=== PATIENT | female | born 1965 | race Caucasian/White ===

== ENCOUNTER → 2019-11-08 | Outpatient (CLI) | payer BC ==
--- NOTE | 2019-11-09 11:17 | MM ---
Reason for exam: screening (asymptomatic). Last mammogram was performed 4 years and 9 months ago. Physical Findings: A clinical breast exam by your physician is recommended on an annual basis and results should be correlated with mammographic findings. MG Screening Mammo w CAD Bilateral CC and MLO view(s) were taken. Prior study comparison: January 23, 2015, bilateral MG screening mammo w CAD. October 18, 2013, [facility] DIGITAL LEFT BREAST MAMMOGRAM w/CAD. There are scattered fibroglandular densities. No suspicious abnormality. No significant changes when compared with prior studies. ASSESSMENT: Negative, BI-RAD 1 RECOMMENDATION: Routine screening mammogram of both breasts in 1 year.
== END | disposition home or self-care (01) ==
LOC: RADMAMWWP 08:31
PROVIDERS: ATTEND Internal Medicine
DX: Z12.31 Encounter for screening mammogram for malignant neoplasm of breast (principal)
CPT/HCPCS: 77067

== ENCOUNTER → 2020-12-02 | Outpatient (CLI) | payer BC ==
--- NOTE | 2020-12-03 14:59 | MM ---
Reason for exam: screening (asymptomatic). Last mammogram was performed 1 year and 1 month ago. Physical Findings: A clinical breast exam by your physician is recommended on an annual basis and results should be correlated with mammographic findings. MG Screening Mammo w CAD Bilateral CC and MLO view(s) were taken. Prior study comparison: November 08, 2019, bilateral MG screening mammo w CAD. January 23, 2015, bilateral MG screening mammo w CAD. There are scattered fibroglandular densities. No significant changes when compared with prior studies. ASSESSMENT: Negative, BI-RAD 1 RECOMMENDATION: Routine screening mammogram of both breasts in 1 year.
== END | disposition home or self-care (01) ==
LOC: RADMAMWWP 14:58
PROVIDERS: ATTEND Internal Medicine
DX: Z12.31 Encounter for screening mammogram for malignant neoplasm of breast (principal)
CPT/HCPCS: 77067

== ENCOUNTER 2023-03-09 20:16 | Inpatient (IN) | payer BC ==
[2023-03-09] MEDS ORDERED: SODIUM CHLORIDE 0.9% 500 ML 500 ML IV STA (20:45)
--- NOTE | 2023-03-09 20:49 | ED ---
General Adult HPI - General Chief complaint: Neuro Symptoms/Deficit Stated complaint: Headache/Lt arm numbness Time Seen by Provider: 03/09/23 20:37 Source: patient, RN notes reviewed, old records reviewed Mode of arrival: ambulatory Limitations: no limitations - History of Present Illness Initial comments: 57-year-old female presenting for evaluation of headache, confusion, and left arm numbness and tingling. Symptoms began at least 2 days prior. Patient states that she has woke with headache which is both occipital and frontal. She states this headache was more severe than typical headaches. She was noted by family to have some confusion and delayed responses. No slurred speech. No facial asymmetry. She denies weakness in the extremities but states she feels tingling in her left arm. No central chest pain. No fever. - Related Data Allergies Allergy/AdvReac Type Severity Reaction Status Date / Time Sulfa (Sulfonamide Allergy Rash/Hives Verified 03/09/23 20:30 Antibiotics) Review of Systems ROS Statement: Those systems with pertinent positive or pertinent negative responses have been documented in the HPI. ROS Other: All systems not noted in ROS Statement are negative. Past Medical History Past Medical History: Hypertension History of Any Multi-Drug Resistant Organisms: None Reported Past Surgical History: Section Past Psychological History: No Psychological Hx Reported Smoking Status: Never smoker Past Alcohol Use History: Rare Past Drug Use History: None Reported General Exam Limitations: no limitations General appearance: alert, in no apparent distress Head exam: Present: atraumatic, normocephalic Eye exam: Present: normal appearance, PERRL Neck exam: Present: normal inspection Respiratory exam: Present: normal lung sounds bilaterally. Absent: respiratory distress, wheezes Cardiovascular Exam: Present: regular rate, normal rhythm GI/Abdominal exam: Present: soft. Absent: distended, tenderness, guarding, rebound Extremities exam: Present: normal inspection, normal capillary refill. Absent: pedal edema Neurological exam: Present: alert, oriented X3, CN II-XII intact, motor sensory deficit (paresthesia of the left arm, drift without ataxia, nih 1) Psychiatric exam: Present: normal affect, normal mood Skin exam: Present: warm, dry, intact Course Vital Signs 03/09/23 03/09/23 20:26 21:29 Temperature 98 F Pulse Rate 99 69 Respiratory 18 18 Rate Blood Pressure 132/87 136/89 O2 Sat by Pulse 98 98 Oximetry Medical Decision Making - Medical Decision Making Was pt. sent in by a medical professional or institution ([facility], [facility], urgent care, hospital, or shelter...) When possible be specific @ -[No] Did you speak to anyone other than the patient for history (EMS, parent, family, police, friend...)? What history was obtained from this source @ -[No] Did you review nursing and triage notes (agree or disagree)? Why? @ -[I reviewed and agree with nursing and triage notes] Were old charts reviewed (outside hosp., previous admission, EMS record, old EKG, old radiological studies, urgent care reports/EKG's, shelter records)? Report findings @ -[No old charts were reviewed] Differential Diagnosis (chest pain, altered mental status, abdominal pain women, abdominal pain men, vaginal bleeding, weakness, fever, dyspnea, syncope, headache, dizziness, GI bleed, back pain, seizure, CVA, palpatations, mental health, musculoskeletal)? @ -[Differential CVA Ischemic stroke, hemorrhagic stroke, brain tumor, atypical migraine, Wernicke's encephalopathy, seizure, multiple sclerosis, meningitis, encephalitis, hypoglycemia, Guillain-Rodriguez, electrolytes disturbance, myasthenia gravis.... This is not meant to be an all-inclusive list] EKG interpreted by me (3pts min.). @ -[EKG: Sinus rhythm, right axis deviation, rate of 87, OR interval 134, QRS duration 117, QTC 420, no ST segment elevation, T-wave inversion in V2 and V3, right bundle branch block.] X-rays interpreted by me (1pt min.). @ -[NEGATIVE FOR ACUTE CARDIOPULMONARY CT interpreted by me (1pt min.). @ -ct BRAIN WITHOUT CONTRAST, NEGATIVE FOR INTRACRANIAL HEMORRHAGE OR MASS EFFECT U/S interpreted by me (1pt. min.). @ -[None done] What testing was considered but not performed or refused? (CT, X-rays, U/S, labs )? Why? @ -[None] What meds were considered but not given or refused? Why? @ -[None] Did you discuss the management of the patient with other professionals (professionals i.e. [facility] Harvey, [facility]AMPOOER, lab, RT, psych nurse, social services specialist, wound care physician, teacher, wildlife officer, case management assistant)? Give summary @ -[employer]] Was smoking cessation discussed for >3mins.? @ -[No] Was critical care preformed (if so, how long)? @ -[No] Were there social determinants of health that impacted care today? How? (Homelessness, low income, unemployed, alcoholism, drug addiction, transportation, low edu. Level, literacy, decrease access to med. care, care home, rehab)? @ -[No] Was there de-escalation of care discussed even if they declined (Discuss DNR or withdrawal of care, Hospice)? DNR status @ -[No] What co-morbidities impacted this encounter? (DM, HTN, Smoking, COPD, CAD, Cancer, CVA, ARF, Chemo, Hep., AIDS, mental health diagnosis, sleep apnea, m orbid obesity)? @ -[None] Was patient admitted / discharged? Hospital course, mention meds given and route, prescriptions, significant lab abnormalities, going to OR and other pertinent info. @ -[57-YEAR-OLD FEMALE WITH 2 DAYS OF HEADACHE, CONFUSION, AND LEFT ARM PARESTHESIA. pATIENT HAS A SUBTLE DRIFT IN THE LEFT UPPER EXTREMITY. sHE HAS PARESTHESIA WITHOUT NUMBNESS ON EXAM. nih OF 1. sHE HAS NO PRIOR HISTORY OF cva. head CT negative for intracranial hemorrhage or mass effect, CT angiography negative for acute occlusion. Patient given aspirin and IV fluids in the emergency department. She will be admitted for further evaluation of CVA. She'll be admitted to internal medicine with neurology on consult.] Undiagnosed new problem with uncertain prognosis? @ -[No] Drug Therapy requiring intensive monitoring for toxicity (Heparin, Nitro, Insulin, Cardizem)? @ -[No] Were any procedures done? @ -[No] Diagnosis/symptom? @ -[CVA ] Acute, or Chronic, or Acute on Chronic? @ -[acute] Uncomplicated (without systemic symptoms) or Complicated (systemic symptoms)? @ -[complicated] Side effects of treatment? @ -[No] Exacerbation, Progression, or Severe Exacerbation? @ -[No] Poses a threat to life or bodily function? How? (Chest pain, USA, OR, pneumonia, PE, COPD, DKA, ARF, appy, cholecystitis, CVA, Diverticulitis, Homicidal, Suicidal, threat to staff... and all critical care pts) @ -[Yes, CVA] - Lab Data Result diagrams: 03/09/23 20:52 03/09/23 20:52 Lab Results 03/09/23 03/09/23 03/09/23 Range/Units 20:52 20:52 20:52 WBC 7.4 (3.8-10.6) k/uL RBC 4.79 (3.80-5.40) m/uL Hgb 14.4 (11.4-16.0) gm/dL Hct 42.5 (34.0-46.0) % MCV 88.8 (80.0-100.0) fL MCH 30.0 (25.0-35.0) pg MCHC 33.8 (31.0-37.0) g/dL RDW 12.7 (11.5-15.5) % Plt Count 353 (150-450) k/uL MPV 7.6 Neutrophils % 61 % Lymphocytes % 28 % Monocytes % 7 % Eosinophils % 1 % Basophils % 0 % Neutrophils # 4.5 (1.3-7.7) k/uL Lymphocytes # 2.1 (1.0-4.8) k/uL Monocytes # 0.5 (0-1.0) k/uL Eosinophils # 0.1 (0-0.7) k/uL Basophils # 0.0 (0-0.2) k/uL PT 9.9 (9.0-12.0) sec INR 0.9 (<1.2) APTT 25.6 (22.0-30.0) sec Sodium 141 (137-145) mmol/L Potassium 3.4 L (3.5-5.1) mmol/L Chloride 105 (98-107) mmol/L Carbon Dioxide 26 (22-30) mmol/L Anion Gap 10 mmol/L BUN 12 (7-17) mg/dL Creatinine 0.85 (0.52-1.04) mg/dL Est GFR (CKD-EPI)AfAm 88 (>60 ml/min/1.73 sqM) Est GFR (CKD-EPI)NonAf 76 (>60 ml/min/1.73 sqM) Glucose 114 H (74-99) mg/dL POC Glucose (mg/dL) (70-110) mg/dL POC Glu Die Developer ID Calcium 9.5 (8.4-10.2) mg/dL Total Bilirubin 0.4 (0.2-1.3) mg/dL AST 30 (14-36) U/L ALT 27 (4-34) U/L Alkaline Phosphatase 75 (38-126) U/L Creatine Kinase 132 (30-135) U/L Troponin I (0.000-0.034) ng/mL Total Protein 7.3 (6.3-8.2) g/dL Albumin 4.1 (3.5-5.0) g/dL 03/09/23 03/09/23 Range/Units 20:52 20:54 WBC (3.8-10.6) k/uL RBC (3.80-5.40) m/uL Hgb (11.4-16.0) gm/dL Hct (34.0-46.0) % MCV (80.0-100.0) fL MCH (25.0-35.0) pg MCHC (31.0-37.0) g/dL RDW (11.5-15.5) % Plt Count (150-450) k/uL MPV Neutrophils % % Lymphocytes % % Monocytes % % Eosinophils % % Basophils % % Neutrophils # (1.3-7.7) k/uL Lymphocytes # (1.0-4.8) k/uL Monocytes # (0-1.0) k/uL Eosinophils # (0-0.7) k/uL Basophils # (0-0.2) k/uL PT (9.0-12.0) sec INR (<1.2) APTT (22.0-30.0) sec Sodium (137-145) mmol/L Potassium (3.5-5.1) mmol/L Chloride (98-107) mmol/L Carbon Dioxide (22-30) mmol/L Anion Gap mmol/L BUN (7-17) mg/dL Creatinine (0.52-1.04) mg/dL Est GFR (CKD-EPI)AfAm (>60 ml/min/1.73 sqM) Est GFR (CKD-EPI)NonAf (>60 ml/min/1.73 sqM) Glucose (74-99) mg/dL POC Glucose (mg/dL) 112 H (70-110) mg/dL POC Glu Die Developer ID February, Calcium (8.4-10.2) mg/dL Total Bilirubin (0.2-1.3) mg/dL AST (14-36) U/L ALT (4-34) U/L Alkaline Phosphatase (38-126) U/L Creatine Kinase (30-135) U/L Troponin I <0.012 (0.000-0.034) ng/mL Total Protein (6.3-8.2) g/dL Albumin (3.5-5.0) g/dL Disposition Clinical Impression: Cerebrovascular accident (CVA) Disposition: ADMITTED IP TO THIS HOSP Condition: Stable Is patient prescribed a controlled substance at d/c from ED?: No Referrals: Jacobo Metcalf MD [Primary Care Provider] - 1-2 days Time of Disposition: 22:26
[2023-03-09 20:55] LABS: Glucose,Whole Blood 112 mg/dL (70-110)
--- NOTE | 2023-03-09 21:13 | XR ---
EXAMINATION TYPE: XR chest 2V DATE OF EXAM: 03/09/2023 9:07 PM COMPARISON: Chest radiographs from 08/07/2014 TECHNIQUE: XR chest 2V Frontal and lateral views of the chest. CLINICAL INDICATION:Female, 57 years old with history of altered mental status; FINDINGS: Lungs/Pleura: There is no evidence of pleural effusion, focal consolidation, or pneumothorax. Pulmonary vascularity: Unremarkable. Heart/mediastinum: Cardiomediastinal silhouette is unremarkable. Musculoskeletal: No acute osseous pathology. IMPRESSION: No acute cardiopulmonary disease/process.
[2023-03-09 21:20] LABS: ALT 27 U/L (4-34); AST 30 U/L (14-36); African American GFR (CKD) 88 (>60 ml/min/1.73 sqM); Albumin 4.1 g/dL (3.5-5.0); Alkaline Phosphatase 75 U/L (38-126); Anion Gap 10 mmol/L; Blood Urea Nitrogen 12 mg/dL (7-17); Calcium 9.5 mg/dL (8.4-10.2); Carbon Dioxide 26 mmol/L (22-30); Chloride 105 mmol/L (98-107); Creatine Kinase 132 U/L (30-135); Glucose 114 mg/dL (74-99); Non-African American GFR(CKD) 76 (>60 ml/min/1.73 sqM); Potassium 3.4 mmol/L (3.5-5.1); Sodium 141 mmol/L (137-145); Total Bilirubin 0.4 mg/dL (0.2-1.3); Total Protein 7.3 g/dL (6.3-8.2)
[2023-03-09 21:21] LABS: Basophils % (A) 0 %; Eosinophils # (A) 0.1 k/uL (0-0.7); Eosinophils % (A) 1 %; HCT 42.5 % (34.0-46.0); HGB 14.4 gm/dL (11.4-16.0); INR 0.9 (<1.2); Lymphocytes # (A) 2.1 k/uL (1.0-4.8); Lymphocytes % (A) 28 %; MCHC 33.8 g/dL (31.0-37.0); MCV 88.8 fL (80.0-100.0); Mean Platelet Volume 7.6; Monocytes # (A) 0.5 k/uL (0-1.0); Monocytes % (A) 7 %; Neutrophils # (A) 4.5 k/uL (1.3-7.7); Neutrophils % (A) 61 %; Partial Thromboplastin Time 25.6 sec (22.0-30.0); Platelet Count 353 k/uL (150-450); Prothrombin Time 9.9 sec (9.0-12.0); RBC 4.79 m/uL (3.80-5.40); RDW 12.7 % (11.5-15.5); WBC 7.4 k/uL (3.8-10.6)
--- NOTE | 2023-03-09 21:56 | CT ---
EXAMINATION TYPE: CT brain wo con CT DLP: 1273.7 mGycm, Automated exposure control for dose reduction was used. DATE OF EXAM: 03/09/2023 9:18 PM COMPARISON: None. CLINICAL INDICATION:Female, 57 years old with history of Neuro deficit, acute, stroke suspected, Neur o deficit, acute, stroke suspected TECHNIQUE: Brain: Axial CT images of the brain were obtained with coronal and sagittal reformats created and rev iewed. Contrast used: None. Oral contrast used: None. FINDINGS: Brain: Extra-axial spaces: No abnormal extra-axial fluid collections. Ventricular system: Within normal limits Cerebral parenchyma: No acute intraparenchymal hemorrhage or mass effect. The andrews-white junction is well differentiated. Cerebellum: Unremarkable. Mass effect: No evidence of midline shift. Intracranial vasculature: unremarkable Soft tissues: Normal. Calvarium/osseous structures: No depressed skull fracture. Paranasal sinuses and mastoid air cells: Mild scattered paranasal sinus disease. Visualized orbits: Orbital contents are intact. IMPRESSION: No acute intracranial process.
[2023-03-09] MEDS ORDERED: ASPIRIN 325 MG TAB PO STA (21:58)
--- NOTE | 2023-03-09 22:03 | CT ---
EXAMINATION TYPE: CT angio head neck CT DLP: 583.8 mGycm, Automated exposure control for dose reduction was used. DATE OF EXAM: 03/09/2023 9:30 PM COMPARISON: CT same day. CLINICAL INDICATION:Female, 57 years old with history of Neuro deficit, acute, stroke suspected; PHH, Neuro deficit, acute, stroke suspected TECHNIQUE: Axially acquired helical CT angiogram of the head and neck was obtained with contrast. Axi al images are supplemented with 3D reconstructions which [facility] NASCET criteria used. Contrast used:65ml mL of Isovue 370 with IV Contrast, Oral contrast used: None. FINDINGS: CTA HEAD: No evidence of acute intracranial hemorrhage, mass effect, or midline shift. The ventricles, sulci, a nd cisterns are unremarkable. The visualized portions of the internal carotid arteries, middle cerebral arteries, anterior cerebral arteries, and posterior cerebral arteries are patent. The basilar and vertebral arteries are patent. CTA NECK: Right Carotid System: The common carotid artery and external carotid artery are patent. The carotid bifurcation demonstrate s no evidence of hemodynamically significant stenosis. The remaining portions of the internal carotid artery demonstrate normal size without significant narrowing. Left Carotid System: The common carotid artery and external carotid artery are patent. The carotid bifurcation demonstrate s no evidence of hemodynamically significant stenosis. The remaining portions of the internal carotid artery demonstrate normal size without significant narrowing. Vertebral arteries are patent without evidence hemodynamically significant stenosis. There is a three-vessel aortic arch. The origins of the great vessels are patent. No evidence of hemo dynamically significant stenosis. Upper thorax: IMPRESSION: 1. No evidence of dissection of the cervical internal carotid arteries or vertebral arteries or any e vidence of significant stenosis at the carotid bifurcations. 2. No evidence of intracranial high-grade stenosis or intracranial aneurysm.
[2023-03-09] MEDS: SODIUM CHLORIDE 0.9% 1,000 ML IV SCH (22:45)
[2023-03-10] MEDS ORDERED: CLOPIDOGREL 75 MG TAB PO STA (00:27)
--- NOTE | 2023-03-10 03:52 | P.HPIM ---
History of Present Illness H&P Date: 03/09/23 Chief Complaint: left UE parasthesia 57 y old female with no significant past medical history , except for remote history of hypertension not currently on meds she is coming in for symptoms that started over the weekend , when she first noticed some simple confusion and memory issues over very simple every day facts. then she was experiencing unusual headaches described as pressure like frontal and occipital , with no associated focal neuro deficits, denies any injuries , vision or hearing changes. then today she started noticing left UE numbness and tingling since 4 pm and decided to come in for evaluation no history of blood clots or CVA. no history of afib denies any injuries .to the head or neck. denies smoking, illicit drugs or alcohol Review of Systems Pertinent positives as noted in HPI. All other systems were reviewed and are negative Past Medical History Past Medical History: Hypertension History of Any Multi-Drug Resistant Organisms: None Reported Past Surgical History: Section Past Psychological History: No Psychological Hx Reported Smoking Status: Never smoker Past Alcohol Use History: Rare Past Drug Use History: None Reported Medications and Allergies Home Medications Medication Instructions Recorded Confirmed Type Levothyroxine Sodium [Synthroid] 125 mcg PO [id number] 03/09/23 03/09/23 History Loratadine 10 mg PO DAILY 03/09/23 03/09/23 History Semaglutide [Wegovy] 2.4 mg SQ MO 03/09/23 03/09/23 History Allergies Allergy/AdvReac Type Severity Reaction Status Date / Time Sulfa (Sulfonamide Allergy Rash/Hives Verified 03/09/23 22:38 Antibiotics) Physical Exam Vitals: Vital Signs Temp Pulse Resp BP Pulse Ox 03/09/23 22:46 78 18 103/86 97 03/09/23 21:29 69 18 136/89 98 03/09/23 20:26 98 F 99 18 132/87 98 Intake and Output 03/09/23 03/09/23 03/10/23 14:59 22:59 06:59 Other: Weight 81.193 kg Constitutional: No acute distress, conversant, pleasant Eyes: Anicteric sclerae, moist conjunctiva, Pupils equal round reactive to light ENMT: NC/AT Oropharynx clear, no erythema, or exudates Neck: Supple, no masses, or JVD No carotid bruits No thyromegaly Lungs: Clear to auscultation Clear to percussion Normal respiratory effort, no accessory muscle use Cardiovascular: Heart regular in rate and rhythm, No murmurs, gallops, or rubs No peripheral edema Abdominal: Soft Nontender, no guarding, rebound or rigidity Abdomen moving with respiration Normoactive bowel sounds No hepatomegaly, No splenomegaly No palpable mass No abdominal wall hernia noted Skin: Normal temperature, tone, texture, turgor Extremities: No digital cyanosis No clubbing Pedal pulses intact and symmetrical Radial pulses intact and symmetrical No calf tenderness Psychiatric: Alert and oriented to person, place and time Appropriate affect fair judgment Neuro Muscles Strength 5/5 in all 4 extremities Sensation to light touch grossly present throughout Cranial nerves II-XII grossly intact finger nose exam is intact Lymphatics: no palpable cervical or supraclavicular lymph nodes Results CBC & Chem 7: 03/09/23 20:52 03/09/23 20:52 Labs: Abnormal Lab Results - Last 24 Hours (Table) 03/09/23 03/09/23 Range/Units 20:52 20:54 Potassium 3.4 L (3.5-5.1) mmol/L Glucose 114 H (74-99) mg/dL POC Glucose (mg/dL) 112 H (70-110) mg/dL Assessment and Plan Assessment: 57 year old female coming in for numbness and tingling over the Left UE, and headache and some confusion over the past 2 days, I discussed the case with ED doc, and I accepted the admission for neuro workup , with anticipated length of stay < 2 midnights left upper extremity numbness and tingling , rule out CVA CT brain and CTA head and neck negative for acute pathology neuro checks tpa not given due to symptoms > 4 hours aspirin and statin plavix not started , as I doubt diagnosis of stroke, will await neuro input fall precautions PT /OT eval check echocardiogram CTA head and neck did not show significant internal carotid blockage CXR no acute pathology vital signs stable IVF hydration with normal saline blood work showed Hgb 14.4, WBC 7.4 unremarkable renal function bun 12 , cr 0.85 full code dvt PPX mechanical
[2023-03-10] MEDS ORDERED: LEVOTHYROXINE 125 MCG TAB PO SCH (06:30)
[2023-03-10] MEDS: ASPIRIN 81 MG PO SCH (08:25)
[2023-03-10] MEDS ORDERED: CLOPIDOGREL 75 MG TAB PO SCH (09:00)
[2023-03-10] MEDS ORDERED: ASPIRIN 325 MG TAB PO SCH (09:00)
--- NOTE | 2023-03-10 11:29 | MR ---
EXAMINATION TYPE: MR brain wo con DATE OF EXAM: 03/10/2023 COMPARISON: CT brain 03/09/2013 HISTORY: Neuro deficit, acute, stroke suspected TECHNIQUE: T1-weighted sagittal, T2, FLAIR, and diffusion axial, and T2 coronal coronal views of the brain are submitted. FINDINGS: There is no evidence of acute ischemia. The ventricles, basal cisterns, and sulci overlying the conv exities are consistent with the patient's age. There is no mass effect. Craniocervical junction maintained. Partially empty sella turcica incidentally noted.. Mild changes of chronic right mastoiditis and sinusitis. Orbits symmetric. No cerebellopontine angle mass. IMPRESSION: 1. No acute intracranial process. 2. Chronic right mastoiditis and sinusitis.
[2023-03-10 12:22] LABS: T4, Free (Free Thyroxine) 2.52 ng/dL (0.78-2.19)
[2023-03-10] MEDS: SODIUM CHLORIDE 0.9% 1,000 ML IV SCH (13:07)
--- NOTE | 2023-03-10 13:23 | P.PN ---
Subjective Progress Note Date: 03/10/23 Hospital course Patient is a 57-year-old female with past medical history of hypothyroidism and currently taking with weight loss who presents to the ED with confusion and memory issues and headache and left upper extremity numbness. Patient's CT head and neck did not show significant internal carotid blockage. CT head negative for acute process. MRI also negative for acute process. LDL 76. Patient started on aspirin and statin. Patient blood pressure is controlled. Patient's TSH was low and T4 is high. Her levothyroxine dose was decreased to 75 g. Subjective Patient states that the numbness in her left hand is better but see still has some. Physical exam General examination - Alert and Oriented 3 in NAD Heart - + S1S2 no murmurs Lungs - Clear to auscultation Abdomen soft NT ND +ve BS Extremities - No edema DIRECTOR [employer] - Moving all 4 extremities spontaneously, mild decreased sensation in the left upper extremity Psych - Calm and cooperative Assessment and Plan: Left upper extremity numbness Hypothyroidism with low TSH and high T4 Obesity Based on my assessment of this patient, this patient meets a moderate complexity level Patient's MRI negative. LDL greater than 70 so we'll resume high intensity started. Patient atorvastatin 80 mg at bedtime. Resume aspirin 81 mg daily. Patient's TSH is low and T4 is high. We'll decrease levothyroxine to 75 g daily Patient to resume wegovy after discharge. CODE STATUS: FULL CODE. DVT prophylaxis: Lovenox. Anticipated discharge place: Pending clinical course Anticipated discharge time: Pending clinical course I have reviewed the following party plan sales consultant notes: None I have reviewed the results of the following tests: TSH, T4, lipid panel, WBC, BMP I have ordered the following tests: None I have discussed the care of this patient with the following independent historian: None I have independently interpreted the following test below: TSH and T4 and lipid panel I have discussed the management of this patient with the following physician: None This patient has a moderate risk of morbidity due to the following reasons: Left upper extremity numbness concerning for TIA versus other etiology Objective - Vital Signs Vital signs: Vital Signs Temp 97.7 F 03/10/23 08:25 Pulse 76 03/10/23 11:30 Resp 17 03/10/23 11:30 BP 145/81 03/10/23 11:30 Pulse Ox 97 03/10/23 11:30 FiO2 Intake & Output 03/09/23 03/10/23 03/10/23 18:59 06:59 18:59 Intake Total 1000 118 Balance 1000 118 Weight 83 kg Intake: Intake, IV Titration 800 Amount Sodium Chloride 0.9% 1, 300 000 ml @ 75 mls/hr IV . [id number] [facility] Rx#:[id number] Sodium Chloride 0.9% 500 500 ml 500 ml @ 999 mls/hr IV .Q31M STA Rx#:[id number] Oral 200 118 Other: Voiding Method Toilet Toilet # Voids 2 - Labs CBC & Chem 7: 03/09/23 20:52 03/09/23 20:52 Labs: Abnormal Lab Results - Last 24 Hours (Table) 03/09/23 03/09/23 03/10/23 Range/Units 20:52 20:54 08:07 Potassium 3.4 L (3.5-5.1) mmol/L Glucose 114 H (74-99) mg/dL POC Glucose (mg/dL) 112 H (70-110) mg/dL TSH <0.015 L (0.465-4.680) mIU/L Free T4 2.52 H (0.78-2.19) ng/dL
[2023-03-10] MEDS ORDERED: ACETAMINOPHEN TAB 325 MG TAB PO PRN (17:07)
--- NOTE | 2023-03-10 19:01 | CA ---
Transthoracic Echo Report Name: Isis Lira Age: 57 Gender: F : 1965 Exam Date: 03/10/2023 08:21 Exam Location: [facility] Ht (in): 65 Wt (lb): 182 Ordering Physician: Cruz Jurado MD Attending/Referring Phys: [id number], Adrien [employer] Worker Rubén Hinojsoa Procedure CPT: Indications: Thrombus Cardiac Hx: Technical Quality: Fair Contrast 1: Total Dose (mL): Contrast 2: Total Dose (mL): MEASUREMENTS (Male / Female) Normal Values 2D ECHO LV Diastolic Diameter PLAX 4.1 cm 4.2 - 5.9 / 3.9 - 5.3 cm LV Systolic Diameter PLAX 3.0 cm IVS Diastolic Thickness 1.1 cm 0.6 - 1.0 / 0.6 - 0.9 cm LVPW Diastolic Thickness 1.1 cm 0.6 - 1.0 / 0.6 - 0.9 cm LV Relative Wall Thickness 0.5 RV Internal Dim ED PLAX 2.3 cm LVOT Diameter 2.0 cm Aortic Root Diameter 2.8 cm LA Systolic Diameter LX 2.3 cm 3.0 - 4.0 / 2.7 - 3.8 cm LV Diastolic Volume MOD BP 40.1 cm??? 67 - 155 / 56 - 104 cm??? LV Systolic Volume MOD BP 13.0 cm??? 22 - 58 / 19 - 49 cm??? LV Ejection Fraction MOD BP 67.7 % >= 55 % LV Diastolic Volume MOD 4C 43.2 cm??? LV Systolic Volume MOD 4C 12.3 cm??? LV Ejection Fraction MOD 4C 71.5 % LV Diastolic Length 4C 6.7 cm LV Systolic Length 4C 5.8 cm LV Diastolic Volume MOD 2C 36.1 cm??? LV Systolic Volume MOD 2C 13.0 cm??? LV Ejection Fraction MOD 2C 64.1 % LV Diastolic Length 2C 6.4 cm LV Systolic Length 2C 5.5 cm LA Volume 33.5 cm??? 18 - 58 / 22 - 52 cm??? Ascending Aorta Diameter 2.6 cm DOPPLER AV Peak Velocity 124.5 cm/s AV Peak Gradient 6.2 mmHg LVOT Peak Velocity 117.9 cm/s LVOT Peak Gradient 5.6 mmHg AV Area Cont Eq pk 3.1 cm??? MV Peak Velocity 88.7 cm/s MV Peak Gradient 3.1 mmHg MV Mean Velocity 40.8 cm/s MV Mean Gradient 0.8 mmHg MV Velocity Time Integral 27.4 cm Mitral E Point Velocity 71.5 cm/s Mitral A Point Velocity 92.2 cm/s Mitral E to A Ratio 0.8 MV Deceleration Time 222.9 ms MV E' Velocity 6.3 cm/s Mitral E to MV E' Ratio 11.4 TR Peak Velocity 182.8 cm/s TR Peak Gradient 13.4 mmHg Right Ventricular Systolic Press 18.6 mmHg FINDINGS Left Ventricle Left ventricular ejection fraction is estimated at 55-60 %.left ventricular cavity size normal. Normal left ventricular wall motion. Right Ventricle Normal right ventricular size. Right Atrium Normal right atrial size. Left Atrium Normal left atrial size. Mitral Valve Structurally normal mitral valve.trace mitral regurgitation. Aortic Valve Trileaflet aortic valve. No aortic regurgitation. No aortic stenosis. Tricuspid Valve Tricuspid valve not well visualized. Trace TR. RVSP= 19mmhg Pulmonic Valve Pulmonic valve not well visualized. Mild PI. Pericardium Normal pericardium. Aorta Normal size aortic root and proximal ascending aorta. CONCLUSIONS 1. Normal left ventricle size and systolic function 2. Trace mitral and tricuspid regurgitation with normal pulmonary pressure Previewed by: Dr. Bakari Foster MD (Electronically Signed) Final Date: 10 March 2023 19:00
--- NOTE | 2023-03-10 19:13 | P.CNNES ---
History of Present Illness Consult date: 03/10/23 Requesting physician: Cruz Jurado Reason for Consult: CVA History of Present Illness: Patient is a 57-year-old left-handed female with previous history of hypertension, in remission, hypothyroidism, came to the hospital yesterday at 8:16 PM for strokelike symptoms. Patient states that in the past 48 hours prior to arrival to the hospital, she has been having episodes of forgetfulness. She gives him an example, that her granddaughter lives with her. She was given some information about her granddaughter's friend, which patient completely forgot and has to call her daughter about that information. Another time, she had conversation with her daughter, forgot name of the item, and another time she forgot name of her primary physician until later it came back. She forgot the year. She was noticing some struggling with processing words like stumbling. Yesterday while she was doing nothing unusual, at around 2 or 3 PM, she noticed tightness and tingling in the left arm. There was no associated numbness of the facial region, or the leg. There was no focal weakness, facial droop or slurred speech. She got concerned, therefore decided to come to the ER. Patient states that for last 6-7 weeks, she has been having headaches, which she feels is related to excessive stresses going on at work and home. She has no time to relax. Sometimes with headache, she feels like a fog. Vital signs on arrival blood pressure 132/87 pulse rate 99 temperature 98.0. Blood test shows normal CBC PT/PTT, normal sodium potassium 3.4, normal hepatic and renal functions, troponin negative. TSH is < 0.015, free T4 elevated 2.52/2.19. CPK normal. EKG shows normal sinus rhythm. Right axis deviation. Chest x-ray showed no acute cardiopulmonary process. CT head normal. Patient denies hypertension or diabetes, never smoked cigarettes, does not drink alcohol. Patient is not on any blood thinners. Patient states that prior to 10 years, she used to be on high blood pressure medication. After she lost weight, the blood pressure became normal and she stopped taking blood pressure medication. She has been off antihypertensive for last 10 years. Within the last year, she gained some weight, and she has to take the water pill. After she lost weight again, she stopped taking the diuretic. At present patient feels the symptoms have mostly gone, although slight tightness and numbness in the left elbow region. Patient admits to having neck always stiff and she underwent muscle are just about 1-1/2 weeks ago. She denies any radicular symptoms otherwise. Patient was prescribed Plavix 300 mg loading dose, but patient apparently has not received it. Past Medical History Past Medical History: Hypertension History of Any Multi-Drug Resistant Organisms: None Reported Past Surgical History: Section Past Psychological History: No Psychological Hx Reported Smoking Status: Never smoker Past Alcohol Use History: Rare Past Drug Use History: None Reported Medications and Allergies Home Medications Medication Instructions Recorded Confirmed Type Levothyroxine Sodium [Synthroid] 125 mcg PO MOTUWETHFRSA 03/09/23 03/09/23 History Loratadine 10 mg PO DAILY 03/09/23 03/09/23 History Semaglutide [Wegovy] 2.4 mg SQ MO 03/09/23 03/09/23 History Allergies Allergy/AdvReac Type Severity Reaction Status Date / Time Sulfa (Sulfonamide Allergy Rash/Hives Verified 03/09/23 22:38 Antibiotics) Physical Examination - Vital Signs Vital Signs: Vital Signs Temp Pulse Pulse Resp BP BP Pulse Ox 03/10/23 08:25 97.7 F 74 18 113/73 95 03/10/23 04:00 97.6 F 71 18 121/74 96 03/10/23 00:00 106/66 03/09/23 23:59 97.9 F 74 18 98 03/09/23 22:46 78 18 103/86 97 03/09/23 21:29 69 18 136/89 98 03/09/23 20:26 98 F 99 18 132/87 98 Intake and Output 03/09/23 03/10/23 03/10/23 22:59 06:59 14:59 Intake Total 1000 118 Balance 1000 118 Intake: Intake, IV Titration 800 Amount Sodium Chloride 0.9% 1, 300 000 ml @ 75 mls/hr IV . [id number] [facility] Rx#:[id number] Sodium Chloride 0.9% 500 500 ml 500 ml @ 999 mls/hr IV .Q31M [facility] Rx#:[id number] Oral 200 118 Other: Voiding Method Toilet Toilet # Voids 2 2 Weight 81.193 kg 83 kg Patient is a middle aged female, very pleasant, in no acute distress. Patient is alert awake oriented to time place and person. Speech and language functions are normal. Patient can name and repeat very well. No aphasia or dysarthria. Attention, concentration and fund of knowledge is adequate. On cranial nerve examination, pupils are equal, round and reacting to light, visual hoffman are full on confrontation, with no neglect on double simultaneous stimulation. Extraocular muscles are intact with no nystagmus. Face is symmetric, tongue protrudes to the midline. Palatal elevation and sensation normal, hearing and shoulder shrug normal, facial sensation normal. On muscle strength testing, there is no pronator drift and the strength is normal in arms and legs distally and proximally. Deep tendon reflexes are (right/left) biceps 2/1+, brachioradialis 2/1, triceps trace/trace, knees 1+/1+, ankles 2/2 and plantars are downgoing bilaterally. Sensory to touch is equal in the arms and legs bilaterally with no neglect on double simultaneous stimulation. Cerebellar function showed no ataxia for ppqbhx-[id number] testing, although she is posturing (inwards rotating) her left arm for testing but not the right arm. No dysdiadochokinesia. No ataxia for piym-ba-ovvm testing on either side. Tone and bulk of muscles normal. Gait deferred.. On general examination, there is no carotid bruit or murmur, S1-S2 audible. Chest is clear on consultation. Abdomen is soft nontender. No organomegaly, bowel sounds present. Peripheral pulses are present. No edema. Results - Laboratory Findings CBC and BMP: 03/09/23 20:52 03/09/23 20:52 Abnormal Lab Findings: Abnormal Labs 03/09/23 03/09/23 03/10/23 20:52 20:54 08:07 Potassium 3.4 L Glucose 114 H POC Glucose (mg/dL) 112 H TSH <0.015 L Free T4 2.52 H Assessment and Plan Assessment: * Possible TIA manifesting with left arm numbness. Patient also has forgetfulness for last 48 hours. Examination nonfocal at this time. MRI of the brain negative for any acute stroke. * History of hypertension, in remission since losing weight * Iatrogenic hyperthyroidism * History of hypothyroidism Plan: * MRI of the brain without contrast revealed no acute intracranial process. Chronic right mastoiditis and sinusitis. I personally reviewed MRI of the brain, agree with no evidence of an acute process. Questionable sinus or mast oid disease, not very impressive. * 2-D echo revealed normal left ventricular size and systolic function with EF 55-60%. Normal left atrial size. No embolic source. * CTA head and neck showed: No evidence of dissection of the cervical internal carotid arteries or vertebral arteries or any evidence of significant stenosis at the carotid bifurcation. No evidence of intracranial high-grade stenosis or intracranial aneurysm. * Fasting a.m. lipid panel pending. Patient's last LDL was 76 on 06/17/2022. Will start Lipitor 20 mg daily. * Hemoglobin A1c 5.1 * Blood pressure is well controlled. * Telemetry monitoring rule out any arrhythmia, so far showing normal sinus rhythm. Patient had a 6 beat run of ventricular tachycardia last night. We will defer to IM, if any further evaluation needed. May consider 30 day event monitor. This tachycardia may be related to her hyperthyroidism. Patient's dose of Synthroid decreased from 125 g to 75 g daily it appears. * DVT prophylaxis: Not necessary, patient walking in the hallway freely. * Neurologically clear otherwise, if cleared by primary regarding telemetry findings.
[2023-03-10 20:38] LABS: LDL Cholesterol,Calculated 82.4 mg/dL (0.0-131.0); VLDL Calculation 10.16 mg/dL (5.00-40.00)
[2023-03-10] MEDS ORDERED: ATORVASTATIN 20 MG TAB PO SCH (21:00)
[2023-03-10] MEDS ORDERED: ATORVASTATIN 80 MG TAB PO SCH (21:00)
[2023-03-11 01:04] VITALS: RESP 18
[2023-03-11] MEDS: SODIUM CHLORIDE 0.9% 1,000 ML IV SCH (03:01)
[2023-03-11] MEDS ORDERED: LEVOTHYROXINE 75 MCG TAB PO SCH (06:30)
[2023-03-11 08:25] VITALS: TEMP 98.1
[2023-03-11] MEDS: ASPIRIN 81 MG PO SCH (08:32)
--- NOTE | 2023-03-11 11:36 | P.DS ---
Providers Date of admission: 03/09/23 22:22 Attending physician: Jaren Schaeffer MD Consults: 03/09/23 22:21 Consult Physician Routine Consulting Provider: Kylie Avendano Consult Reason/Comments: cva Do you want consulting provider notified?: Yes Primary care physician: Jacobo Metcalf MD Patient Condition at Discharge: Stable Plan - Discharge Summary Discharge Rx Participant: No New Discharge Prescriptions: New Aspirin 81 mg PO DAILY 30 Days #30 tab Atorvastatin [Lipitor] 40 mg PO DAILY 30 Days #30 tablet Levothyroxine Sodium [Synthroid] 75 mcg PO DAILY@0630 #30 tab Continue Loratadine 10 mg PO DAILY Semaglutide [Wegovy] 2.4 mg SQ MO Discontinued Levothyroxine [facility] [[facility]] [facility] Discharge Medication List Loratadine 10 mg PO DAILY 03/09/23 [History] Semaglutide [Wegovy] 2.4 mg SQ MO 03/09/23 [History] Aspirin 81 mg PO DAILY 30 Days #30 tab 03/11/23 [Rx] Atorvastatin [Lipitor] 40 mg PO DAILY 30 Days #30 tablet 03/11/23 [Rx] Levothyroxine Sodium [Synthroid] 75 mcg PO DAILY@0630 #30 tab 03/11/23 [Rx] Follow up Appointment(s)/Referral(s): Jacobo Metcalf MD [Primary Care Provider] - 1-2 days Discharge Disposition: HOME SELF-CARE
--- NOTE | 2023-03-11 11:38 | P.DS ---
Providers Date of admission: 03/09/23 22:22 Attending physician: Jaren Schaeffer MD Consults: 03/09/23 22:21 Consult Physician Routine Consulting Provider: Kylie Avendano Consult Reason/Comments: cva Do you want consulting provider notified?: Yes Primary care physician: Jacobo Metcalf MD Hospital Course: Discharge Diagnosis: Left upper extremity numbness likely due to TIA Hypothyroidism with iatrogenic hyperthyroidism NSVT likely due to iatrogenic hyperthyroidism Obesity Hospital Course: Patient is a 57-year-old female with past medical history of hypothyroidism and currently taking with weight loss who presents to the ED with confusion and memory issues and headache and left upper extremity numbness. Patient's CT head and neck did not show significant internal carotid blockage. CT head negative for acute process. MRI also negative for acute process. Echocardiogram showed normal LV function. LDL 76. Hemoglobin A1c 6.5. Patient blood pressure controlled. Patient started on aspirin and statin. Patient blood pressure is controlled. Per neurology her numbness likely due to TIA. At the time of discharge patient reported that her numbness had resolved. Patient's TSH was low and T4 is high. Her levothyroxine dose was decreased to 75 g. Patient instructed to follow up with PCP for repeat thyroid function labs in 6 weeks. Patient states that she has good results with wegovy. Patient will continue taking this medication. Patient seen and examined at bedside.[] Vital signs reviewed and stable. General: [non toxic], [no distress], [appears at stated age] Derm: [warm], [dry] Head: [atraumatic], [normocephalic], [symmetric] Eyes: [EOMI], [no lid lag], [anicteric sclera] Mouth: [no lip lesion], [mucus membranes moist] Cardiovascular: [S1S2 reg], [no murmur], [positive posterior tibial pulse bilateral], Lungs: [CTA bilateral], [no rhonchi, no rales] , [no accessory muscle use] Abdominal: [soft], [ nontender to palpation], [no guarding], [no appreciable organomegaly] Ext: [no gross muscle atrophy], [no edema], [no contractures] Neuro: [ CN II-XI grossly intact], [no focal neuro deficits] Psych: [Alert], [oriented], [appropriate affect] A total of [33] minutes of time were spent preparing this complex discharge summary . Patient Condition at Discharge: Stable Plan - Discharge Summary Discharge Rx Participant: No New Discharge Prescriptions: New Aspirin 81 mg PO DAILY 30 Days #30 tab Atorvastatin [Lipitor] 40 mg PO DAILY 30 Days #30 tablet Levothyroxine Sodium [Synthroid] 75 mcg PO DAILY@0630 #30 tab Continue Loratadine 10 mg PO DAILY Semaglutide [Wegovy] 2.4 mg SQ MO Discontinued Levothyroxine Sodium [Synthroid] 125 mcg PO [facility] Discharge Medication List Loratadine 10 mg PO DAILY 03/09/23 [History] Semaglutide [Wegovy] 2.4 mg SQ MO 03/09/23 [History] Aspirin 81 mg PO DAILY 30 Days #30 tab 03/11/23 [Rx] Atorvastatin [Lipitor] 40 mg PO DAILY 30 Days #30 tablet 03/11/23 [Rx] Levothyroxine Sodium [Synthroid] 75 mcg PO DAILY@0630 #30 tab 03/11/23 [Rx] Follow up Appointment(s)/Referral(s): Jacobo Metcalf MD [Primary Care Provider] - 1-2 days Discharge Disposition: HOME SELF-CARE
[2023-03-11 12:04] VITALS: BP 142/86; PULSE 81
== END 2023-03-11 14:04 | disposition home or self-care (01) | DRG 69 ==
LOC: EC 20:16 → 3SCARD 22:22
PROVIDERS: ADMIT Internal Medicine; ATTEND Internal Medicine
DX: G45.9 Transient cerebral ischemic attack, unspecified (principal); I47.20 Ventricular tachycardia, unspecified; I10 Essential (primary) hypertension; E03.9 Hypothyroidism, unspecified; E05.80 Other thyrotoxicosis without thyrotoxic crisis or storm; E66.9 Obesity, unspecified; Z68.30 Body mass index [BMI] 30.0-30.9, adult; Z79.890 Hormone replacement therapy; Z79.899 Other long term (current) drug therapy; Z88.2 Allergy status to sulfonamides
CPT/HCPCS: 36415; 70450; 70496; 70498; 70551; 71046; 80053; 80061; 82550; 83036; 84439; 84443; 84484; 85025; 85610; 85730; 93005; 93306; 96360; 96361; 99285

== ENCOUNTER → 2024-04-13 | Outpatient (CLI) | payer BC ==
--- NOTE | 2024-04-16 13:34 | MM ---
Reason for Exam: Screening (asymptomatic). Last mammogram was performed 1 year(s) and 4 month(s) ago. Patient History: Menarche at age 14. First Full-Term at age 19. Postmenopausal. Patient has history of breast feeding. Risk Values: Natalie 5 year model risk: 1.1%. NCI Lifetime model risk: 6.2%. Prior Study Comparison: 11/08/2019 Bilateral Screening Mammogram, [facility]. 12/02/2020 Bilateral Screening Mammogram, [facility]. 12/02/2022 Bilateral MG screening mammo w CAD, [facility]. Tissue Density: There are scattered areas of fibroglandular density. Findings: Analyzed By CAD. The pattern is symmetrical. No significant interval change No suspicious groups of microcalcifications, spiculated or lobular masses, architectural distortion or other secondary signs of malignancy are mammographically apparent. Overall Assessment: Benign, BI-RAD 2 Management: Screening Mammogram of both breasts in 1 year. A negative mammogram report should not preclude additional follow up of suspicious palpable abnormalities. Patient should continue monthly self breast exam. A clinical breast exam by your physician is recommended on an annual basis and results should be correlated with mammographic findings. Note on Natalie scores and lifetime risk: 1. A Natalie score greater than 3% is considered moderate risk. If this is the case, consider specialist referral to assess eligibility for a risk reducing agent. 2. If overall lifetime risk for the development of breast cancer is 20% or higher, the patient may qualify for future screening with alternating mammogram and breast MRI. Electronically signed and approved by: Yomi Boyce D.O. Radiologis
== END | disposition home or self-care (01) ==
LOC: RADMAMWWP 07:50
PROVIDERS: ATTEND Internal Medicine
DX: Z12.31 Encounter for screening mammogram for malignant neoplasm of breast (principal); R92.323 Mammographic fibroglandular density, bilateral breasts; Z78.0 Asymptomatic menopausal state
CPT/HCPCS: 77067

== ENCOUNTER → 2025-01-29 | Outpatient (CLI) | payer BC ==
--- NOTE | 2025-01-29 10:40 | XR ---
EXAMINATION TYPE: XR chest 2V DATE OF EXAM: 01/29/2025 10:34 AM COMPARISON: Chest radiographs from 03/09/2023 TECHNIQUE: XR chest 2V Frontal and lateral views of the chest. CLINICAL INDICATION:Female, 59 years old with history of R09.89 CHEST CONGESTION; FINDINGS: Lungs/Pleura: There is no evidence of pleural effusion, focal consolidation, or pneumothorax. Pulmonary vascularity: Unremarkable. Heart/mediastinum: Cardiomediastinal silhouette is unremarkable. Atherosclerotic calcifications are seen in the aorta. Musculoskeletal: No acute osseous pathology. Other findings: Cholecystectomy clips identified in the right upper abdomen. IMPRESSION: No acute cardiopulmonary disease/process. [facility], , 01/29/2025 10:38 AM
== END | disposition home or self-care (01) ==
LOC: RADXRMAIN 10:19
PROVIDERS: ATTEND Internal Medicine
DX: R09.89 Other specified symptoms and signs involving the circulatory and respiratory systems (principal); R07.89 Other chest pain
CPT/HCPCS: 71046

== ENCOUNTER → 2025-02-13 | Outpatient (CLI) | payer BC ==
[2025-02-13 17:56] LABS: Basophils # (A) 0.07 X 10*3/uL (0.00-0.10); Basophils % (A) 0.9 %; Eosinophils # (A) 0.27 X 10*3/uL (0.04-0.35); Eosinophils % (A) 3.4 %; HCT 43.4 % (37.2-46.3); HGB 14.4 g/dL (12.0-15.0); Lymphocytes % (A) 31.1 %; MCH 29.8 pg (27.0-32.0); MCHC 33.2 g/dL (32.0-37.0); MCV 89.9 FL (80.0-97.0); Mean Platelet Volume 10.4 FL (9.5-12.2); Monocytes # (A) 0.79 X 10*3/uL (0.20-1.00); Monocytes % (A) 9.8 %; NRBC Per 100 WBC 0 X 10*3/uL (0.00-0.01); Neutrophils # (A) 4.38 X 10*3/uL (1.80-7.70); Neutrophils % (A) 54.6 %; Platelet Count 406 X 10*3/uL (140-440); RBC 4.83 X 10*6/uL (4.10-5.20); RDW 12.9 % (11.5-14.5); WBC 8.03 X 10*3/uL (4.50-10.00)
[2025-02-13 18:19] LABS: Blood Urea Nitrogen 19.8 mg/dL (9.0-27.0); Carbon Dioxide 23.7 mmol/L (21.6-31.8); Chloride 106 mmol/L (96-109); Glucose 82 mg/dL (70-110); LDH 217 U/L (120-246); Potassium 4.4 mmol/L (3.5-5.5); Sodium 145 mmol/L (135-145)
[2025-02-13 18:20] LABS: ALT 45 U/L (8-44); AST 29 U/L (13-35); Albumin 4.5 g/dL (3.8-4.9); Albumin/Globulin Ratio 1.73 Ratio (1.60-3.17); Alkaline Phosphatase 103 U/L (41-126); Calcium 9.9 mg/dL (8.7-10.3); Globulin 2.6 g/dL (1.6-3.3); Total Bilirubin 0.4 mg/dL (0.3-1.2); Total Protein 7.1 g/dL (6.2-8.2)
== END | disposition home or self-care (01) ==
LOC: LABWHC1 12:37
PROVIDERS: ATTEND Family Medicine
DX: G62.9 Polyneuropathy, unspecified (principal); R63.1 Polydipsia; R63.2 Polyphagia; R35.89 Other polyuria
CPT/HCPCS: 36415; 80053; 82533; 83615; 85025

== ENCOUNTER → 2025-03-12 | Outpatient (CLI) | payer BC ==
--- NOTE | 2025-03-12 11:59 | XR ---
EXAMINATION TYPE: XR KUB DATE OF EXAM: 03/12/2025 11:40 AM COMPARISON: None CLINICAL INDICATION: Female, 59 years old with history of M54.50 LOW BACK PAIN, UNSPECIFIED; [facility] TECHNIQUE: One radiographic view of the abdomen was obtained. FINDINGS: The bowel gas pattern is nonspecific without dilated loops of small or large bowel. . Fecal material and gas are demonstrated throughout the colon and rectum. There is no evidence for organome ara or pneumoperitoneum. Degeneration changes of the spine. No acute osseous process. No abnormal calcifications are present. Upper quadrant cholecystectomy clips. IMPRESSION: 1. Nonspecific bowel gas pattern without radiographic evidence for acute process. 2. Moderate degeneration changes of the spine. [facility], , 03/12/2025 11:57 AM
== END | disposition home or self-care (01) ==
LOC: RADXRMAIN 11:26
PROVIDERS: ATTEND Internal Medicine
DX: M54.50 Low back pain, unspecified (principal); M47.819 Spondylosis without myelopathy or radiculopathy, site unspecified
CPT/HCPCS: 74018

== ENCOUNTER → 2025-03-16 | Outpatient (CLI) | payer BC ==
--- NOTE | 2025-03-16 14:50 | US ---
EXAMINATION TYPE: US kidneys/renal and bladder DATE OF EXAM: 03/16/2025 COMPARISON: NONE CLINICAL INDICATION: Female, 59 years old with history of R80.9 PROTEINURIA, UNSPECIFIED; Proteinuria TECHNIQUE: Grayscale imaging of the bilateral kidneys and urinary bladder: FINDINGS: EXAM MEASUREMENTS: Right Kidney: 10.6 x 4.7 x 4.2 cm Left Kidney: 10.5 x 4.4 x 4.5 cm Right Kidney: No hydronephrosis or masses seen Left Kidney: No hydronephrosis or masses seen Bladder: wnl Bilateral Jets seen: No There is no evidence for hydronephrosis at this point in time. No nephrolithiasis is seen. No edison s are identified. The urinary bladder is anechoic. IMPRESSION: None [facility], , 03/16/2025 2:47 PM
== END | disposition home or self-care (01) ==
LOC: RADUSWWP 14:15
PROVIDERS: ATTEND Internal Medicine
DX: R80.9 Proteinuria, unspecified (principal)
CPT/HCPCS: 76770